=== PATIENT | female | born 2000 | race Caucasian/White ===

== ENCOUNTER → 2025-09-24 06:27 | Outpatient (REF) | payer OTHER, SELFPAY ==
[2025-09-24 08:44] LABS: TSH 3.26 uIU/ml (0.47-4.68)
[2025-09-25 12:16] LABS: Thyroglobulin Antibodies 3.0 IU/mL (0.0-4.0)
== END ==
LOC: REG 06:27
PROVIDERS: ATTENDING PHYSICIAN Family Medicine
DX: E06.3 Autoimmune thyroiditis (principal)
CPT/HCPCS: 36415; 84439; 84443; 86376; 86800